=== PATIENT | male | born 1950 | race Caucasian/White ===

== ENCOUNTER 2018-05-20 14:39 | Observation (INO) | payer MEDICARE ==
[~2018-05-20] VITALS: Ht 177.8 cm; Wt 94.7 kg
[~2018-05-20 14:39] MED LIST changes: -ALEN70 PO; -Balance B-501 EACH PO; -Loratadine10 MG PO; -VITAMIN D5000 UNI1 PO
[2018-05-20 15:16] LABS: BASOPHILS ABSOLUTE AUTO 0.03 K/mm3 (0.00-0.23); BASOPHILS PERCENT AUTO 0 % (0-2); EOSINOPHILS ABSOLUTE AUTO 0.34 K/mm3 (0.00-0.68); EOSINOPHILS PERCENT AUTO 4 % (0-6); Hematocrit 41.4 % (37.0-53.0); IMMATURE GRAN ABSOLUTE AUTO 0.04 K/mm3 (0.00-0.10); IMMATURE GRAN PERCENT AUTO 0 % (0-1); LYMPHOCYTES ABSOLUTE AUTO 1.43 K/mm3 (0.84-5.20); LYMPHOCYTES PERCENT AUTO 16 % (21-46); MONOCYTES ABSOLUTE AUTO 0.84 K/mm3 (0.16-1.47); MONOCYTES PERCENT AUTO 9 % (4-13); Mean Corpuscular HGB 34.8 pg (26.0-34.0); Mean Corpuscular HGB Conc 33.8 g/dL (31.5-36.5); Mean Corpuscular Volume 103 fL (80-100); Mean Platelet Volume 9.7 fL (9.1-12.4); NEUTROPHILS ABSOLUTE AUTO 6.51 K/mm3 (1.96-9.15); NEUTROPHILS PERCENT AUTO 71 % (41-73); Platelet Count 180 K/mm3 (150-400); RDW Coefficient Variation 13.2 % (11.7-14.2); RDW Standard Deviation 50.4 fL (35.1-46.3); Red Blood Cell Count 4.02 M/mm3 (4.30-5.90); White Blood Cell Count 9.19 K/mm3 (4.00-11.30)
[2018-05-20 15:26] LABS: Alanine Aminotransfer (ALT/SGP 50 U/L (12-78); Albumin, Blood 3.3 g/dL (3.4-5.0); Albumin/Globulin Ratio 0.9 (0.8-1.8); Alk Phos 132 U/L (50-136); Anion Gap 7 mmol/L (6-16); Aspartate Aminotrans (AST/SGOT 62 U/L (12-37); Bilirubin, Total 0.5 mg/dL (0.1-1.0); Blood Urea Nitrogen 12 mg/dL (8-24); Bun/Creatinine Ratio 18.8 (12.0-20.0); CO2, Blood 26 mmol/L (21-32); Calcium, Blood 8.9 mg/dL (8.5-10.1); Chloride, Blood 106 mmol/L (98-108); Creatinine, Blood 0.64 mg/dL (0.60-1.20); Globulin, Blood 3.8 g/dL (2.2-4.0); Glomerular Filtration Rate >60 (60-); Glucose, Blood 93 mg/dL (70-99); Potassium, Blood 3.5 mmol/L (3.5-5.5); Sodium, Blood 139 mmol/L (136-145); Total Protein, Blood 7.1 g/dL (6.4-8.2)
[2018-05-20] MEDS ORDERED: ALEN70 PO (15:31)
[2018-05-20] MEDS ORDERED: Loratadine10 MG PO (15:32)
[2018-05-20] MEDS ORDERED: WARF3 PO (16:13)
[2018-05-20] MEDS ORDERED: Balance B-501 EACH PO (16:14)
[2018-05-20] MEDS ORDERED: VITAMIN D5000 UNI1 PO (16:14)
--- NOTE | 2018-05-20 19:55 | NUR ---
ASSUMED CARE BEDSIDE REPORT RECIEVED. PT IS SITTING UP IN BED ALERT, ORIENTED, AND TALKING WITH FAMILY IN ROOM. PT DENIES PAIN OR DISCOMFORT. VSS. PT COMPLAINS OF GENERALIZED FATIGUE FROM DOING TOO MUCH YARD WORK. PT IN SINUS RHYTHM WITH OCCASIONAL PVC'S. PT ON ROOM AIR. IV SALINE LOCKED AT THIS TIME. WILL CONTINUE TO MONITOR.
[2018-05-21 04:15] LABS: International Normalized Ratio 2.21; Prothrombin Time Results 21.8 Sec (9.7-11.5)
[2018-05-21 04:26] LABS: CHOL/HDL RATIO 3.1; Cholesterol 170 mg/dL (50-200); HDL Cholesterol 55 mg/dL (>39); LDL/HDL RATIO 1.1; Low Density Lipoprotein Chol 61 mg/dL (0-110); Triglycerides 269 mg/dL (30-160); Very Low Density Lipoprot Chol 53 mg/dL (6-32)
--- NOTE | 2018-05-21 05:42 | NUR ---
SHIFT SUMMARY NO ACUTE CHANGES THIS SHIFT. PT HAS REMAINED ALERT AND ORIENTED. PT HAS DENIED PAIN OR DISCOMFORT, SOB, OR NAUSEA. PT REMAINS ON RA. VITAL SIGNS STABLE. NO NEW ECTOPY OR VTACH THROUGHOUT THE NIGHT. NS WITH 20 MEQ K INFUSING AT 100 ML/HR. PT HAS REPOSITIONED SELF IN BED INDEPENDENTLY. PT STOOD AT BEDSIDE TO VOID IN URINAL WITHOUT DIFFICULTY. PT FAMILY MEMEBER HAS REMAINED AT BEDSIDE. WILL CONTINUE TO MONITOR AND REPORT OFF TO ONCOMING RN.
--- NOTE | 2018-05-21 08:22 | NUR ---
BEGINNING OF SHIFT Assumed care of pt at 0700. Report received from Ronald DECKER. Pt on room air. SR per telemetry with 2-4 PVCs per minute. Pt NPO since midnight until he is seen by cardiology. Dr Small in room at this time. Pt's spouse is at bedside. Bed in lowest position. Call light in reach. Pt denies need at this time.
[2018-05-21 09:33] LABS: Magnesium, Blood 1.6 mg/dL (1.6-2.4)
[2018-05-21 09:40] LABS: Digoxin (Lanoxin) 0.74 ug/mL (0.80-2.00)
--- NOTE | 2018-05-21 17:17 | NUR ---
DISCHARGE SUMMARY Pt had an angiogram without intervention today. Pt okay to discharge per Dr Small. Plans for pt to have 30 day cardiac event monitor placed this week. This RN had pt ambulate around unit several times while on telemetry prior to discharge. Pt tolerated activity well and had no cardiac events on telemetry. Pt had right transradial access site with TR band that was fully deflated and left on for one hour prior to discharge. Since arrival to unit from heart center until discharge, color, sensation, capillary refill, and distal pulses were equal BUE. No bruising, leakage, or hematoma noted to radial site. No new medications. Discharge education given to pt and spouse who verbalized and demonstrated understanding of education provided. Pt discharged from unit at 1705, via wheelchair, accompanied by Giovanna PATEL.
== END 2018-05-21 17:03 | disposition home or self-care (01) ==
LOC: ER 14:39 → PCU 14:40 → ER 16:48 → PCU 18:00
PROVIDERS: Emergency Medicine; Internal Medicine Cardiovascular Disease; ADMIT Internal Medicine
DX: R55 Syncope and collapse (principal); I25.10 Atherosclerotic heart disease of native coronary artery without angina pectoris; I48.0 Paroxysmal atrial fibrillation; I49.3 Ventricular premature depolarization; I10 Essential (primary) hypertension; E78.5 Hyperlipidemia, unspecified; R94.31 Abnormal electrocardiogram [ECG] [EKG]; M10.9 Gout, unspecified; Z79.01 Long term (current) use of anticoagulants; Z87.891 Personal history of nicotine dependence; Z88.1 Allergy status to other antibiotic agents; Z88.5 Allergy status to narcotic agent; Z88.8 Allergy status to other drugs, medicaments and biological substances; Z79.899 Other long term (current) drug therapy; Z72.89 Other problems related to lifestyle; Z85.038 Personal history of other malignant neoplasm of large intestine
CPT/HCPCS: 36415; 71045; 80053; 80061; 80162; 82533; 83735; 83880; 84132; 84443; 84484; 85025; 85610; 93005; 93010; 93306; 93458; 96360; 96361; 99152; 99153; 99285-25; C1769; C1894; G0378; J1644; J2001; J2250; J3010; J3480; J7030; Q9967

== ENCOUNTER → 2018-05-20 | Outpatient (CLI) | payer MEDICARE ==
[~2018-05-20] MED LIST: ALEN70 PO; ASPI81EC; ATOR40TA PO; Balance B-501 EACH PO; CALCA500CH; CYAN500 PO; ERGO400; IBUP600 PO; IBUP800 PO; LANOXIN250 MC1 PO; LOSA50 PO; Loratadine10 MG PO; VITAMIN D5000 UNI1 PO; WARF3 PO
[2018-05-20 14:30] LABS: BASOPHILS ABSOLUTE AUTO 0.05 K/mm3 (0.00-0.23); BASOPHILS PERCENT AUTO 1 % (0-2); EOSINOPHILS ABSOLUTE AUTO 0.33 K/mm3 (0.00-0.68); EOSINOPHILS PERCENT AUTO 3 % (0-6); Hematocrit 43.7 % (37.0-53.0); Hemoglobin 15.3 g/dL (13.5-17.5); IMMATURE GRAN ABSOLUTE AUTO 0.06 K/mm3 (0.00-0.10); IMMATURE GRAN PERCENT AUTO 1 % (0-1); LYMPHOCYTES ABSOLUTE AUTO 1.99 K/mm3 (0.84-5.20); LYMPHOCYTES PERCENT AUTO 19 % (21-46); MONOCYTES ABSOLUTE AUTO 0.84 K/mm3 (0.16-1.47); MONOCYTES PERCENT AUTO 8 % (4-13); Mean Corpuscular HGB 35.3 pg (26.0-34.0); Mean Corpuscular Volume 101 fL (80-100); Mean Platelet Volume 9.6 fL (9.1-12.4); NEUTROPHILS ABSOLUTE AUTO 7.49 K/mm3 (1.96-9.15); NEUTROPHILS PERCENT AUTO 70 % (41-73); Platelet Count 213 K/mm3 (150-400); RDW Coefficient Variation 13.3 % (11.7-14.2); RDW Standard Deviation 49.8 fL (35.1-46.3); Red Blood Cell Count 4.33 M/mm3 (4.30-5.90); White Blood Cell Count 10.76 K/mm3 (4.00-11.30)
[2018-05-20 15:25] LABS: Anion Gap 10 mmol/L (6-16); Blood Urea Nitrogen 12 mg/dL (8-24); Bun/Creatinine Ratio 18.9 (12.0-20.0); CO2, Blood 24 mmol/L (21-32); Calcium, Blood 9.3 mg/dL (8.5-10.1); Chloride, Blood 105 mmol/L (98-108); Creatinine, Blood 0.64 mg/dL (0.60-1.20); Glomerular Filtration Rate >60 (60-); Glucose, Blood 95 mg/dL (70-99); Potassium, Blood 3.6 mmol/L (3.5-5.5); Sodium, Blood 139 mmol/L (136-145); Troponin I <0.015 ng/mL (0.000-0.040)
[2018-05-20 15:29] LABS: Digoxin (Lanoxin) 0.87 ug/mL (0.80-2.00)
[2018-05-20 15:48] LABS: International Normalized Ratio 2.41; Prothrombin Time Results 23.6 Sec (9.7-11.5)
== END | disposition home or self-care (01) ==
LOC: LAB EV 14:22 → LAB SHORT 14:22
PROVIDERS: Internal Medicine
DX: R55 Syncope and collapse (principal)
CPT/HCPCS: 80048; 80162; 84484; 85025; 85610

== ENCOUNTER 2018-08-10 12:38 | Emergency (ER) | payer MEDICARE ==
[~2018-08-10] VITALS: Ht 177.8 cm; Wt 63.5 kg
[~2018-08-10 12:38] MED LIST changes: +ALEN70 PO; +Balance B-501 EACH PO; +Loratadine10 MG PO; +VITAMIN D5000 UNI1 PO
[2018-08-10 14:07] LABS: BASOPHILS ABSOLUTE AUTO 0.02 K/mm3 (0.00-0.23); BASOPHILS PERCENT AUTO 0 % (0-2); EOSINOPHILS ABSOLUTE AUTO 0.17 K/mm3 (0.00-0.68); EOSINOPHILS PERCENT AUTO 2 % (0-6); Hematocrit 39.9 % (37.0-53.0); IMMATURE GRAN ABSOLUTE AUTO 0.04 K/mm3 (0.00-0.10); IMMATURE GRAN PERCENT AUTO 1 % (0-1); LYMPHOCYTES PERCENT AUTO 18 % (21-46); MONOCYTES ABSOLUTE AUTO 0.54 K/mm3 (0.16-1.47); MONOCYTES PERCENT AUTO 7 % (4-13); Mean Corpuscular HGB 31.6 pg (26.0-34.0); Mean Corpuscular HGB Conc 32.6 g/dL (31.5-36.5); Mean Corpuscular Volume 97 fL (80-100); Mean Platelet Volume 10.6 fL (9.1-12.4); NEUTROPHILS ABSOLUTE AUTO 5.42 K/mm3 (1.96-9.15); NEUTROPHILS PERCENT AUTO 72 % (41-73); Platelet Count 198 K/mm3 (150-400); RDW Coefficient Variation 12.7 % (11.7-14.2); RDW Standard Deviation 45.4 fL (35.1-46.3); Red Blood Cell Count 4.11 M/mm3 (4.30-5.90); White Blood Cell Count 7.59 K/mm3 (4.00-11.30)
[2018-08-10 14:20] LABS: Alanine Aminotransfer (ALT/SGP 30 U/L (12-78); Albumin, Blood 3.4 g/dL (3.4-5.0); Alk Phos 144 U/L (50-136); Anion Gap 7 mmol/L (6-16); Aspartate Aminotrans (AST/SGOT 16 U/L (12-37); Bilirubin, Total 0.8 mg/dL (0.1-1.0); Blood Urea Nitrogen 11 mg/dL (8-24); Bun/Creatinine Ratio 14.1 (12.0-20.0); CO2, Blood 22 mmol/L (21-32); Calcium, Blood 8.9 mg/dL (8.5-10.1); Chloride, Blood 108 mmol/L (98-108); Creatinine, Blood 0.78 mg/dL (0.60-1.20); Globulin, Blood 3.3 g/dL (2.2-4.0); Glomerular Filtration Rate >60 (60-); Glucose, Blood 93 mg/dL (70-99); Potassium, Blood 3.2 mmol/L (3.5-5.5); Sodium, Blood 137 mmol/L (136-145); Total Protein, Blood 6.7 g/dL (6.4-8.2)
== END 2018-08-10 15:26 | disposition home or self-care (01) ==
LOC: ER 12:38
PROVIDERS: Emergency Medicine
DX: R55 Syncope and collapse (principal); E86.0 Dehydration; I10 Essential (primary) hypertension; I48.91 Unspecified atrial fibrillation; Z87.891 Personal history of nicotine dependence; Z88.1 Allergy status to other antibiotic agents; Z88.8 Allergy status to other drugs, medicaments and biological substances; Z88.5 Allergy status to narcotic agent; Z79.899 Other long term (current) drug therapy; Z79.01 Long term (current) use of anticoagulants
CPT/HCPCS: 80053; 84484; 85025; 93005; 93010; 96360; 99284-25; J7030

== ENCOUNTER → 2020-09-02 | Outpatient (CLI) | payer MEDICARE ==
[~2020-09-02] MED LIST changes: +TOPROL XL25 MG PO
== END | disposition home or self-care (01) ==
LOC: LAB SHORT 10:58
DX: L57.0 Actinic keratosis (principal)
CPT/HCPCS: 88305